=== PATIENT | male | born 1970 | race Two or more races ===

== ENCOUNTER 2016-11-22 07:53 | Emergency (ER) | payer OTHER ==
[~2016-11-22] VITALS: Ht 165.1 cm; Wt 63.5 kg
--- NOTE | 2016-11-22 08:25 | RAD ---
EXAM: Chest, single view. HISTORY: Facial drooping. COMPARISON: None. FINDINGS: A frontal view of the chest is obtained. There is no infiltrate, effusion or pneumothorax. The heart is normal in size. IMPRESSION: No acute pulmonary finding.
--- NOTE | 2016-11-22 08:55 | PHYS DOC ---
Past Medical History Past Medical History: Diabetes-Type II Past Surgical History: No Surgical History Alcohol Use: None Drug Use: None Adult General Chief Complaint Chief Complaint: NEURO SYMPTOMS/DEFICITS [facility] HPI Patient is a 46 year old male who presents with left-sided facial droop that he noted on Saturday at 3 pm. He states he his not able to raise the left eye brow. Patient denies any headache, denies any other neurological deficits. He has a history of diabetes and follows up [facility], he uses insulin for his DM. We used a RN as deaf interpreter for Persian. According to the this patient was had a syncope episode at work. said patient was woken up around 3 PM at work and they noted he had left-sided facial droop. Patient himself states he was sleeping during his break and was not passed out. Review of Systems Review of Systems Constitutional: Denies fever or chills [] Eyes: Denies change in visual acuity, redness, or eye pain [] HENT: Denies nasal congestion or sore throat [] Respiratory: Denies cough or shortness of breath [] Cardiovascular: No additional information not addressed in HPI [] GI: Denies abdominal pain, nausea, vomiting, bloody stools or diarrhea [] : Denies dysuria or hematuria [] Musculoskeletal: Denies back pain or joint pain [] Integument: Denies rash or skin lesions [] Neurologic: Left-sided facial droop Endocrine: Denies polyuria or polydipsia [] Current Medications Current Medications Current Medications Medications (Trade) Dose Ordered Sig/Dana Start Time Stop Time Status Last Admin Dose Admin Artificial Tears (Artificial Tears) 1 drop PRN Q15MIN PRN 11/22/16 10:00 11/22/16 10:10 1 DROP Prednisone (Prednisone) 60 mg 1X ONCE 11/22/16 10:00 11/22/16 10:01 DC 11/22/16 10:13 60 MG Allergies Allergies Allergies Coded Allergies Type Severity Reaction Last Updated Verified No Known Drug Allergies 11/22/16 No Physical Exam Physical Exam Constitutional: Well developed, well nourished, no acute distress, non-toxic appearance. [] HENT: Normocephalic, atraumatic, bilateral external ears normal, oropharynx moist, no oral exudates, nose normal. [] Eyes: PERRLA, EOMI, conjunctiva normal, no discharge. [] Neck: Normal range of motion, no tenderness, supple, no stridor. [] Cardiovascular:Heart rate regular rhythm, no murmur [] Lungs & Thorax: Bilateral breath sounds clear to auscultation [] Abdomen: Bowel sounds normal, soft, no tenderness, no masses, no pulsatile masses. [] Skin: Warm, dry, no erythema, no rash. [] Back: No tenderness, no CVA tenderness. [] Extremities: No tenderness, no cyanosis, no clubbing, ROM intact, no edema. [] Neurologic: Alert and oriented X 3, normal motor function, normal sensory function, no focal deficits noted. Left sided facial drop noted with inability to raise the left eye brow. Psychologic: Affect normal, judgement normal, mood normal. [] Current Patient Data Vital Signs Vital Signs Date Time Temp Pulse Resp B/P Pulse Ox O2 Delivery O2 Flow Rate FiO2 11/22/16 08:10 98.4 82 18 183/100 96 Room Air 98.4 Lab Values Laboratory Tests Test 11/22/16 08:46 11/22/16 09:20 White Blood Count 5.8x10^3/uL (4.0-11.0) Red Blood Count 4.92x10^6/uL (4.30-5.70) Hemoglobin 14.5g/dL (13.0-17.5) Hematocrit 42.6% (39.0-53.0) Mean Corpuscular Volume 87fL (79-100) Mean Corpuscular Hemoglobin 30pg (25-35) Mean Corpuscular Hemoglobin Concent 34g/dL (31-37) Red Cell Distribution Width 12.4% (11.5-14.5) Platelet Count 185x10^3/uL (140-400) Neutrophils (%) (Auto) 68% (31-73) Lymphocytes (%) (Auto) 22% (24-48) L Monocytes (%) (Auto) 8% (0-9) Eosinophils (%) (Auto) 2% (0-3) Basophils (%) (Auto) 1% (0-3) Neutrophils # (Auto) 4.0x10^3uL (1.8-7.7) Lymphocytes # (Auto) 1.3x10^3/uL (1.0-4.8) Monocytes # (Auto) 0.5x10^3/uL (0.0-1.1) Eosinophils # (Auto) 0.1x10^3/uL (0.0-0.7) Basophils # (Auto) 0.0x10^3/uL (0.0-0.2) Prothrombin Time 12.9SEC (11.7-14.0) Prothrombin Time INR 1.0 (0.8-1.1) PTT 33SEC (24-38) Fibrinogen 271mg/dL (200-440) Sodium Level 147mmol/L (136-145) H Potassium Level 3.6mmol/L (3.5-5.1) Chloride Level 109mmol/L (98-107) H Carbon Dioxide Level 27mmol/L (21-32) Anion Gap 11 (6-14) Blood Urea Nitrogen 19mg/dL (8-26) Creatinine 0.8mg/dL (0.7-1.3) Estimated GFR (Cockcroft-Gault) 103.6 BUN/Creatinine Ratio 24 (6-20) H Glucose Level 93mg/dL (70-99) Calcium Level 8.8mg/dL (8.5-10.1) Total Bilirubin 0.3mg/dL (0.2-1.0) Aspartate Amino Transferase (AST) 23U/L (15-37) Alanine Aminotransferase (ALT) 36U/L (16-63) Alkaline Phosphatase 82U/L (46-116) Troponin I Quantitative < 0.017ng/mL (0.000-0.055) Total Protein 7.0g/dL (6.4-8.2) Albumin 3.7g/dL (3.4-5.0) Albumin/Globulin Ratio 1.1 (1.0-1.7) Urine Collection Type Unknown Urine Color Yellow Urine Clarity Clear Urine pH 8.0 Urine Specific [place] 1.015 Urine Protein Negativemg/dL (NEG-TRACE) Urine Glucose (UA) Negativemg/dL (NEG) Urine Ketones (Stick) Negativemg/dL (NEG) Urine Blood Negative (NEG) Urine Nitrite Negative (NEG) Urine Bilirubin Negative (NEG) Urine Urobilinogen Dipstick 0.2mg/dL (0.2 mg/dL) Urine Leukocyte Esterase Negative (NEG) Urine RBC 0/HPF (0-2) Urine WBC Occ/HPF (0-4) Urine Bacteria 0/HPF (0-FEW) Urine Opiates Screen Neg (NEG) Urine Methadone Screen Neg (NEG) Urine Barbiturates Neg (NEG) Urine Phencyclidine Screen Neg (NEG) Urine Amphetamine/Methamphetamine Neg (NEG) Urine Benzodiazepines Screen Neg (NEG) Urine Cocaine Screen Neg (NEG) Urine Cannabinoids Screen Neg (NEG) Urine Ethyl Alcohol Neg (NEG) Laboratory Tests 11/22/16 08:46 Laboratory Tests 11/22/16 08:46 EKG EKG [] Radiology/Procedures Radiology/Procedures []PROCEDURE: HEAD WO CONTRAST CT head without contrast History: Left facial drop for 3 days. Comparison: None. Procedure: Axial images are obtained of the head from the skull base through the vertex without IV contrast. One or more of the following individualized dose reduction techniques were utilized for the study: Automated exposure control Adjustment of mA and/or kV according to patient's size Use of iterative reconstruction technique. Findings: The ventricles and sulci are normal for the patient's age. No mass-effect, intracranial mass, midline shift, hemorrhage or obvious acute infarction is identified. Basilar cisterns are patent. Bone windows demonstrate no significant calvarial abnormality. There is opacification of a right ethmoid air cell. Impression: No acute intracranial process. Please note that CT can be relatively insensitive to acute ischemic infarction for up to 24 hours after symptom onset. DICTATED and SIGNED BY: PITA ALLISON MD DATE: 11/22/16929 CC: GASTON LICONA APRN; NO PCP ~ PROCEDURE: CHEST AP ONLY EXAM: Chest, single view. HISTORY: Facial drooping. COMPARISON: None. FINDINGS: A frontal view of the chest is obtained. There is no infiltrate, effusion or pneumothorax. The heart is normal in size. IMPRESSION: No acute pulmonary finding. DICTATED and SIGNED BY: SANGITA BURGOS MD DATE: 11/22/16820 CC: GASTON LICONA APRN; NO PCP ~ Course & Med Decision Making Course & Med Decision Making Pertinent Labs and Imaging studies reviewed. (See chart for details) Patient is in the ED with left-sided facial droop that he noted 4 ago. The states patient was found passed out at work, patient himself states he was asleep during his lunch break and he never passed out. EKG interpreted by Dr. Davied-sinus rhythm, HR 78 no STEMI CBC CMP CK-MB and troponin with no acute findings. Chest x-ray was negative for any acute findings. CT of the head was negative for any acute findings. 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 He was started on prednisone and given artificial tears in the ED. He was discharged with prednisone as well as artificial tears. His blood pressure was 183/100 with a heart rate of 82, patient denies any history of hypertension. He does have good follow-up with his own PCP i recommended he contact the PCP and follow-up on this. He was provided proper return precautions including the need to return to the ED if symptoms worsen, he develops the worst headache in his life. He does have a PCP for follow-up a local clinic. Recommended he follows up with his PCP in the next 1-3 days. Dragon Disclaimer Dragon Disclaimer This electronic medical record was generated, in whole or in part, using a voice recognition dictation system. Departure Departure Impression: Primary Impression: Hodge's palsy Additional Impression: Accelerated hypertension Disposition: 01 HOME, SELF-CARE Condition: STABLE Referrals: NO PCP (PCP) Follow-up with your own doctor in the next 1-3 days Patient Instructions: Hodge's Palsy, Hypertension Additional Instructions: You were seen for Hodge's palsy which is a disorder that causes numbness to one side of the face. We'll put you on prednisone and artificial tears, your symptoms can subside in the next 3-6 months. Come back to the emergency room if symptoms worsen. Use the eyedrops provided as needed to prevent eye dryness. Your blood pressure was also high at 183/100. Follow-up with your own doctor in the next 1-3 days. Scripts Prednisone 10 Mg [id number] Mg PO DAILY #1 TAB 60 mg for 4 days then 25 mg BID for 10 days. Please dispense the right amount Prov:GASTON LICONA APRN 11/22/16 Problem Qualifiers GASTON LICONA APRN Nov 22, 2016 08:55
[2016-11-22 09:02] LABS: BASO % 1 % (0-3); EOS % 2 % (0-3); HEMATOCRIT 42.6 % (39.0-53.0); HEMOGLOBIN 14.5 g/dL (13.0-17.5); LYMPH # 1.3 x10^3/uL (1.0-4.8); LYMPH % 22 % (24-48); MEAN CORPUSCULAR HEMOGLOBIN 30 pg (25-35); MEAN CORPUSCULAR HGB CONC 34 g/dL (31-37); MEAN CORPUSCULAR VOLUME 87 fL (79-100); MONO % 8 % (0-9); NEUT % 68 % (31-73); PLATELET COUNT 185 x10^3/uL (140-400); RED BLOOD COUNT 4.92 x10^6/uL (4.30-5.70); RED CELL DISTRIBUTION WIDTH 12.4 % (11.5-14.5); WHITE BLOOD COUNT 5.8 x10^3/uL (4.0-11.0)
--- NOTE | 2016-11-22 09:10 | EKG ---
[facility] [address] [place] [address] Test Date: 2016-11-22 Test Time: 08:23:58 Pat Name: FRIDA OLMOS Department: Room: Gender: M Boiler Installer: : [id number] Requested By: GASTON LICONA Order Number: [id number] Reading MD: Jesús Coffey Measurements Intervals [place] Rate: 78 P: 35 [place]: 164 QRS: 8 QRSD: 94 T: -3 QT: 368 QTc: 423 Interpretive Statements SINUS RHYTHM Electronically Signed On 11-27-2016 10:08:48 [employer]INE [employer] by Jesús Coffey
[2016-11-22 09:11] LABS: CALCIUM 8.8 mg/dL (8.5-10.1); CREATININE 0.8 mg/dL (0.7-1.3); GFR 103.6; POTASSIUM 3.6 mmol/L (3.5-5.1)
[2016-11-22 09:13] LABS: PROTHROMBIN TIME PATIENT 12.9 SEC (11.7-14.0)
[2016-11-22 09:17] LABS: ALBUMIN 3.7 g/dL (3.4-5.0); ALBUMIN/GLOBULIN RATIO 1.1 (1.0-1.7); TOTAL BILIRUBIN 0.3 mg/dL (0.2-1.0)
[2016-11-22 09:32] LABS: BILIRUBIN,URINE NEGATIVE (NEG); GLUCOSE,URINE NEGATIVE (NEG); NITRITE,URINE NEGATIVE (NEG); PROTEIN,URINE NEGATIVE (NEG-TRACE); UROBILINOGEN,URINE 0.2 mg/dL (0.2 mg/dL)
--- NOTE | 2016-11-22 09:34 | RAD ---
CT head without contrast History: Left facial drop for 3 days. Comparison: None. Procedure: Axial images are obtained of the head from the skull base through the vertex without IV contrast. One or more of the following individualized dose reduction techniques were utilized for the study: Automated exposure control Adjustment of mA and/or kV according to patient's size Use of iterative reconstruction technique. Findings: The ventricles and sulci are normal for the patient's age. No mass-effect, intracranial mass, midline shift, hemorrhage or obvious acute infarction is identified. Basilar cisterns are patent. Bone windows demonstrate no significant calvarial abnormality. There is opacification of a right ethmoid air cell. Impression: No acute intracranial process. Please note that CT can be relatively insensitive to acute ischemic infarction for up to 24 hours after symptom onset.
[2016-11-22 09:38] LABS: BARBITURATES NEG (NEG); BENZODIAZEPINES NEG (NEG); CANNABINOIDS NEG (NEG); COCAINE NEG (NEG); ETHANOL, URINE NEG (NEG); METHADONE NEG (NEG); OPIATES NEG (NEG); PHENCYCLIDINE NEG (NEG)
[2016-11-22 09:44] LABS: BACTERIA,URINE 0 /HPF (0-FEW); RBC,URINE 0 /HPF (0-2); WBC,URINE OCC /HPF (0-4)
[2016-11-22] MEDS ORDERED: POLYVINYL ALCOHOL 1.4% OPHTH SOLUTION 15ML BOTTLE. OU PRN (10:00)
[2016-11-22] MEDS ORDERED: PREDNISONE 20 MG TABLET PO ONE (10:00)
[2016-11-22] MEDS ORDERED: PRED-220 PO (10:32)
[2016-11-22 10:41] VITALS: BP 149/97
== END 2016-11-22 10:41 | disposition home or self-care (01) ==
LOC: ER 07:53
DX: G51.0 Bell's palsy (principal); I10 Essential (primary) hypertension; E11.9 Type 2 diabetes mellitus without complications
CPT/HCPCS: 36415; 70450; 71010; 80053; 81001; 84484; 85027; 85384; 85610; 85730; 93005; 99285; G0481; J7512

== ENCOUNTER 2021-06-09 23:30 | Emergency (ER) | payer OTHER ==
[~2021-06-09] VITALS: Ht 162.6 cm; Wt 72.2 kg
[~2021-06-09 23:30] MED LIST: PRED-220 PO
[2021-06-09 23:35] VITALS: BP 162/85
== END 2021-06-10 01:30 | disposition left against medical advice (07) ==
LOC: ER 23:30
DX: K08.89 Other specified disorders of teeth and supporting structures (principal); Z53.21 Procedure and treatment not carried out due to patient leaving prior to being seen by health care provider